=== PATIENT | male | born 1970 | race Caucasian/White ===

== ENCOUNTER 2020-06-26 06:07 | Day surgery (SDC) | payer MEDICAID, SELFPAY ==
[2020-06-19 14:14] LABS: BASOPHILS # (AUTO) 0.2 K/uL (0.00-0.22); EOSINOPHILS # (AUTO) 0.4 K/uL (0-0.4); EOSINOPHILS % (AUTO) 2.4 % (0.0-4.0); HEMATOCRIT 37.8 % (36-52); HEMOGLOBIN 12.4 g/dL (12.0-18.0); LYMPHOCYTES # (AUTO) 2.9 K/uL (2.0-11.5); LYMPHOCYTES % (AUTO) 19.2 % (20.5-51.1); MEAN CORPUSCULAR HEMOGLOBIN 26 pg (27-31); MEAN CORPUSCULAR HGB CONC 33 g/dL (33-37); MEAN CORPUSCULAR VOLUME 78.4 fL (80-94); MONOCYTES # (AUTO) 0.8 K/uL (0.8-1.0); NEUTROPHILS # (AUTO) 10.9 K/uL (1.8-7.7); NEUTROPHILS % (AUTO) 72.4 % (42.2-75.2); PLATELET COUNT (AUTO) 391 K/uL (140-450); RED BLOOD CELL COUNT(AUTO) 4.83 MIL/uL (4.20-6.10); RED CELL DISTRIBUTION WIDTH 18.7 % (11.6-13.7)
[2020-06-19 14:31] LABS: ALBUMIN 3.1 g/dL (3.4-5.0); ANION GAP 11.8 (8-16); CARBON DIOXIDE 25.2 mmol/L (21-32); CREATININE 0.8 mg/dL (0.6-1.3); TOTAL BILIRUBIN 0.1 mg/dL (0.0-1.0)
[~2020-06-26] VITALS: Ht 175.3 cm; Wt 64.9 kg
[2020-06-26] MEDS ORDERED: BUPIVACAINE-MPF/EPI 0.5% 30 ML VIAL INJ ONE (07:25)
[2020-06-26] MEDS ORDERED: BUPIVACAINE-MPF 0.25% 30 ML VIAL INJ ONE (07:29)
[2020-06-26] MEDS ORDERED: PROPOFOL 200 MG/20 ML VIAL IV ONE (07:40)
[2020-06-26] MEDS ORDERED: fentaNYL citrate 0.05 MG/ML VIAL ONE (07:40)
[2020-06-26] MEDS ORDERED: MIDAZOLAM 2 MG/2 ML VIAL ONE (07:40)
[2020-06-26] MEDS ORDERED: LIDOCAINE 2% 1000 MG/50 ML VIAL INJ ONE ×2 (08:00→08:01)
== END 2020-06-26 10:35 | disposition home or self-care (01) ==
LOC: MDS 06:07 → MMU 06:08 → MDS 10:35
PROVIDERS: ATTEND Urology
DX: R33.9 Retention of urine, unspecified (principal); N31.9 Neuromuscular dysfunction of bladder, unspecified; N36.8 Other specified disorders of urethra; I10 Essential (primary) hypertension; F32.9 Major depressive disorder, single episode, unspecified; Z79.899 Other long term (current) drug therapy; Z20.828 Contact with and (suspected) exposure to other viral communicable diseases
CPT/HCPCS: 36415; 51040; 71045; 80053; 85025; J0690; J2001; J2250; J2704; J3010; J7060; J7120; U0003; J3490

== ENCOUNTER 2020-10-07 09:33 | Emergency (ER) | payer MEDICAID, SELFPAY ==
[~2020-10-07] VITALS: Ht 170.2 cm; Wt 68.0 kg
--- NOTE | 2020-10-07 09:33 | NUR ---
Patient BIBA ALS, transferred to bed 1. RN evaluating the patient at bedside.
[2020-10-07 09:40] VITALS: BP 106/57
[2020-10-07] MEDS ORDERED: cefTRIAXone 1,000 MG in DEXT 5% MINI-BAG PLUS 50 ML IV ONE (09:45)
[2020-10-07] MEDS ORDERED: LEVOFLOXACIN 500 MG/D5W PREMIX 100 ML IV ONE (09:55)
[2020-10-07] MEDS ORDERED: DOCU-299 PO (10:01)
[2020-10-07] MEDS ORDERED: ASCO500T95 PO (10:01)
[2020-10-07] MEDS ORDERED: LORA10TA19 PO (10:01)
[2020-10-07] MEDS ORDERED: GABA400C PO (10:01)
[2020-10-07] MEDS ORDERED: FLOR250 PO (10:01)
[2020-10-07] MEDS ORDERED: ACET-2214 PO (10:01)
[2020-10-07] MEDS ORDERED: [UNRECOGNIZED DRUG - CODE] PO (10:12)
[2020-10-07] MEDS ORDERED: SENN-73 PO (10:12)
[2020-10-07] MEDS ORDERED: HYDR-5018 PO (10:12)
[2020-10-07] MEDS ORDERED: AMMO12LO TP (10:12)
[2020-10-07] MEDS ORDERED: PANT40EC PO (10:12)
[2020-10-07] MEDS ORDERED: CEPH500C16 PO (10:12)
[2020-10-07] MEDS ORDERED: ACET-9494 PO (10:12)
[2020-10-07] MEDS ORDERED: ONDA4TAB PO (10:12)
[2020-10-07] MEDS ORDERED: MIRT-92 PO (10:12)
[2020-10-07] MEDS ORDERED: MAGN400S60 PO (10:12)
[2020-10-07] MEDS ORDERED: ZOLP5TAB1 PO (10:12)
[2020-10-07] MEDS ORDERED: PRO5 PO (10:12)
[2020-10-07] MEDS ORDERED: METH-1681 PO (10:12)
[2020-10-07] MEDS ORDERED: ACET-2619 PO (10:12)
[2020-10-07] MEDS ORDERED: MULT-1328 PO (10:12)
[2020-10-07] MEDS ORDERED: NA P133E RC (10:13)
[2020-10-07 10:21] LABS: BASOPHILS # (AUTO) 0.1 K/uL (0.00-0.22); BASOPHILS % (AUTO) 0.7 % (0.0-2.0); EOSINOPHILS # (AUTO) 0.1 K/uL (0-0.4); EOSINOPHILS % (AUTO) 0.4 % (0.0-4.0); HEMATOCRIT 28.4 % (36-52); HEMOGLOBIN 9.2 g/dL (12.0-18.0); LYMPHOCYTES % (AUTO) 10.6 % (20.5-51.1); MEAN CORPUSCULAR HEMOGLOBIN 25 pg (27-31); MEAN CORPUSCULAR HGB CONC 32 g/dL (33-37); MEAN CORPUSCULAR VOLUME 76.8 fL (80-94); MONOCYTES # (AUTO) 1.1 K/uL (0.8-1.0); MONOCYTES % (AUTO) 6.1 % (1.7-9.3); NEUTROPHILS # (AUTO) 15.1 K/uL (1.8-7.7); NEUTROPHILS % (AUTO) 82.2 % (42.2-75.2); PLATELET COUNT (AUTO) 476 K/uL (140-450); RED BLOOD CELL COUNT(AUTO) 3.69 MIL/uL (4.20-6.10); WHITE BLOOD COUNT (AUTO) 18.4 K/uL (4.8-10.8)
[2020-10-07 10:25] LABS: BILIRUBIN,URINE NEGATIVE (NEGATIVE); COLOR,URINE YELLOW (YELLOW); LEUKOCYTE ESTERASE ,URINE NEGATIVE (NEGATIVE); NITRITE, URINE NEGATIVE (NEGATIVE); UGLUCOSE NEGATIVE (NEGATIVE)
--- NOTE | 2020-10-07 10:26 | NUR ---
50 Y/O M STAYS AT [facility], CAME IN FOR ELEVATED WBCS AND FEVER FOR PAST 4 DAYS. LAST PM, HAD 101.0 F AT 2230. PT COMPLAINS OF 8/10 NECK AND SACRAL PAIN. PT HAS TWO PRESSURE INJURIES ON BUTTOCKS AND SACRAL AREA. UPON ASSESSMENT, FOUND STAGE 1 ON L ANKLE. PMH OF CHRONIC PAIN, PARAPLEGIC, AND LOW BP. ALLERGIES TO ROCEPHRIN AND TRAZADONE. DENIES ANY CONTACT WITH ANYONE WHO IS COVID POSITIVE, DENIES SOB, COUGH, CHEST PAIN.
[2020-10-07 10:34] LABS: ALBUMIN 2.3 g/dL (3.4-5.0); ANION GAP 12.8 (8-16); CARBON DIOXIDE 26.8 mmol/L (21-32); CREATININE 0.7 mg/dL (0.6-1.3); POTASSIUM 3.6 mmol/L (3.5-5.1); TOTAL BILIRUBIN 0.2 mg/dL (0.0-1.0)
[2020-10-07] MEDS ORDERED: MORPHINE SULFATE 4 MG/ML SYR IVP ONE (10:55)
[2020-10-07 11:08] LABS: APPEARANCE,URINE CLEAR (CLEAR); BLOOD, URINE 1+ (NEGATIVE); RBC,URINE 0-5 /HPF (0-5); WBC,URINE 0-5 /HPF (0-5)
[2020-10-07] MEDS ORDERED: fentaNYL citrate 0.05 MG/ML VIAL IVP ONE (11:10)
--- NOTE | 2020-10-07 11:51 | NUR ---
UPON ASSESSMENT, NOTICED STAGE 1 PRESSURE INJURY ON L ANKLE. WOUND WAS CLEANED, DRESSED AND LABELED.
--- NOTE | 2020-10-07 12:21 | NUR ---
Patient discharged with v/s stable. Written and verbal after care instructions given and explained. Patient alert, oriented and verbalized understanding of instructions. Ambulance Transport with to long-term. All questions addressed prior to discharge. ID band removed. Patient advised to follow up with PMD. Rx of BACTRIM given. Patient educated on indication of medication including possible reaction and side effects. Opportunity to ask questions provided and answered.
[2020-10-07 14:26] VITALS: BP 110/69
== END 2020-10-07 12:21 | disposition home or self-care (01) ==
LOC: MED 09:33
DX: D72.829 Elevated white blood cell count, unspecified (principal); L98.499 Non-pressure chronic ulcer of skin of other sites with unspecified severity; F17.200 Nicotine dependence, unspecified, uncomplicated; Z88.1 Allergy status to other antibiotic agents; Z79.899 Other long term (current) drug therapy; Z98.890 Other specified postprocedural states
CPT/HCPCS: 36415; 71045; 80053; 81001; 83605; 83880; 84484; 85025; 87040; 87086; 93005; 96365; 96375; 99285; J1956; J3010; J2270

== ENCOUNTER 2020-10-12 15:36 | Inpatient (IN) | payer MEDICAID, SELFPAY ==
[~2020-10-12] VITALS: Ht 170.2 cm; Wt 67.6 kg
[~2020-10-12 15:36] MED LIST: ACET-2214 PO; ACET-2619 PO; AMMO12LO TP; ASCO500T95 PO; CEPH500C16 PO; DOCU-299 PO; FLOR250 PO; GABA400C PO; HYDR-5018 PO; LORA10TA19 PO; MAGN400S60 PO; METH-1681 PO; MIRT-92 PO; MULT-1328 PO; NA P133E RC; ONDA4TAB PO; OXYC-163 PO; PANT40EC PO; PRO5 PO; SENN-73 PO; ZOLP5TAB1 PO; [UNRECOGNIZED DRUG - CODE] PO
[2020-10-12 15:37] VITALS: BP 90/48
[2020-10-12] MEDS ORDERED: BISA-213 RC (15:43)
[2020-10-12] MEDS ORDERED: HYDR-5191 PO (15:43)
[2020-10-12] MEDS ORDERED: [UNRECOGNIZED DRUG - CODE] IM (15:44)
--- NOTE | 2020-10-12 15:45 | NUR ---
50 YO M DELTAA FROM [facility] FOR ABNORMAL LABS- ELEVATED WBC COUNT. PER REPORT THE FACILITY DOCTOR BELIEVES HE MAY HAVE A UTI OR WOUND INFECTION. PT DENIES COVID SYMTPOMS, WAS NEGATIVE FOR COVID LAST WEEK. PT ALSO JUST RECIEVED SECOND COVID VACCINE LAST WEEK. PT REPORTS 9/10 LEFT SIDED HIP PAIN AT WOUND SITE AND CHRONIC NECK PAIN. PT PLACED ON BRIM CURLER. BED LOCKED AND IN LOWEST POSITION. SIDE RAILS X2. MED HX: PARAPELEGIC, SUPRAPUBIC URINARY CATHETER, OSTEOMYELITIS, HYPOTENSION
[2020-10-12] MEDS ORDERED: GENTAMICIN 80 MG in DEXTROSE 5% 100 ML IV ONE (15:50)
[2020-10-12] MEDS ORDERED: VANCOMYCIN 1,000 MG in DEXTROSE 5% 250 ML IV ONE (15:50)
[2020-10-12] MEDS ORDERED: NACL 0.9% 1,000 ML IV SCH (15:50)
--- NOTE | 2020-10-12 16:00 | NUR ---
ERMD MADE AWARE OF PERSISTENT HYPOTENSION, ORDERS GIVEN
--- NOTE | 2020-10-12 16:10 | NUR ---
LABS DRAWN AND TAKEN TO LAB
[2020-10-12] MEDS ORDERED: GENTAMICIN 80 MG/2 ML VIAL ONE (16:21)
[2020-10-12] MEDS ORDERED: MORPHINE SULFATE 4 MG/ML SYR IVP ONE (16:25)
[2020-10-12] MEDS ORDERED: MIDODRINE 5 MG TAB PO ONE (16:25)
[2020-10-12 16:34] LABS: BASOPHILS # (AUTO) 0.2 K/uL (0.00-0.22); BASOPHILS % (AUTO) 1.3 % (0.0-2.0); EOSINOPHILS # (AUTO) 0.1 K/uL (0-0.4); EOSINOPHILS % (AUTO) 0.5 % (0.0-4.0); HEMATOCRIT 30.2 % (36-52); HEMOGLOBIN 9.5 g/dL (12.0-18.0); LYMPHOCYTES % (AUTO) 11.9 % (20.5-51.1); MEAN CORPUSCULAR HEMOGLOBIN 25 pg (27-31); MEAN CORPUSCULAR HGB CONC 32 g/dL (33-37); MEAN CORPUSCULAR VOLUME 77.6 fL (80-94); MONOCYTES % (AUTO) 6.4 % (1.7-9.3); NEUTROPHILS # (AUTO) 13.1 K/uL (1.8-7.7); NEUTROPHILS % (AUTO) 79.9 % (42.2-75.2); PLATELET COUNT (AUTO) 528 K/uL (140-450); RED BLOOD CELL COUNT(AUTO) 3.89 MIL/uL (4.20-6.10); RED CELL DISTRIBUTION WIDTH 15.7 % (11.6-13.7); WHITE BLOOD COUNT (AUTO) 16.4 K/uL (4.8-10.8)
--- NOTE | 2020-10-12 16:37 | NUR ---
PT REFUSED MORPHINE STATES "IT DOES NOTHING FOR ME." ERMD MADE AWARE. ORDERS GIVEN
[2020-10-12] MEDS ORDERED: fentaNYL citrate 0.05 MG/ML VIAL IVP ONE (16:50)
[2020-10-12 16:54] LABS: ALBUMIN 2.3 g/dL (3.4-5.0); ANION GAP 10.6 (8-16); CARBON DIOXIDE 29.4 mmol/L (21-32); CREATININE 0.7 mg/dL (0.6-1.3); TOTAL BILIRUBIN 0.2 mg/dL (0.0-1.0)
[2020-10-12 16:54] LABS: APPEARANCE,URINE CLEAR (CLEAR); BILIRUBIN,URINE NEGATIVE (NEGATIVE); BLOOD, URINE 1+ (NEGATIVE); COLOR,URINE YELLOW (YELLOW); LEUKOCYTE ESTERASE ,URINE NEGATIVE (NEGATIVE); NITRITE, URINE NEGATIVE (NEGATIVE); UGLUCOSE NEGATIVE (NEGATIVE)
[2020-10-12 17:00] LABS: RBC,URINE 11-20 (MOD) /HPF (0-5); WBC,URINE 0-5 /HPF (0-5)
[2020-10-12 17:01] LABS: CALCIUM OXALATE CRYSTALS,UR 0-10 /HPF (None Seen)
--- NOTE | 2020-10-12 17:09 | NUR ---
PT PROVIDED WITH SANDWICH JUICE AND CRACKERS AFTER ERMD APPROVAL
[2020-10-12] MEDS ORDERED: VANCOMYCIN 1,000 MG VIAL ONE (17:19)
[2020-10-12] MEDS ORDERED: NACL 0.9% 2,000 ML IV ONE (17:20)
[2020-10-12] MEDS: NACL 0.9% 1,000 ML IV SCH (17:20)
--- NOTE | 2020-10-12 17:34 | NUR ---
IRAIDA SWAB COLLECTED AND TAKEN TO LAB
--- NOTE | 2020-10-12 18:00 | NUR ---
WOUND CULTURES OBTAINED FROM LEFT BUTTOCK WOUND AND WALKED TO LAB
--- NOTE | 2020-10-12 19:11 | NUR ---
REPORT GIVEN TO TERI HOPE. TRANSFER OF CARE AT THIS TIME.
--- NOTE | 2020-10-12 19:15 | NUR ---
RECEIVED REPORT FROM DAY NURSE; PT AAOX3, FOLLOWING COMMANDS. DENIES PAIN FEVER CHILLS @ THIS TIME. NO CP OR SOB. CRISTELA LOCKED IN LOWEST POSITION. IV TO R AC 20 G WITH VANCOMYCIN ABX RUNNING. WILL CONTINUE TO OBSERVE.
--- NOTE | 2020-10-12 19:40 | NUR ---
RECEIVED REPORT FROM ER NURSE, HERMINIA WILLIAMSON. WILL WAIT FOR PT TO ARRIVE ON THE UNIT.
[2020-10-12 20:00] VITALS: BP 107/55
--- NOTE | 2020-10-12 20:00 | NUR ---
RECEIVED PT FROM DRU RN. PT IS AWAKE AND ALERT, SPEAKING APPROPRIATELY. ON RA WITH BREATHING UNLABORED. SUPRAPUBIC CATHETER IN PLACE WITH 400 ML OF CLEAR, YELLOW URINE. WOUNDS ON THE LEFT BUTTOCKS, RIGHT BUTTOCK, SACRAL, AND LEFT FOOT. ALL WOUNDS ARE DRESSED AND INTACT. IV IS IN THE RIGHT AC 20 GAUGE RUNNING NS AT 100 ML PER HOUR PER ORDER. NO DISTRESS NOTED. STANDARD AND FALL PRECAUTIONS IN PLACE. PT IS STABLE. PLAN OF CARE DISCUSSED.
[2020-10-12] MEDS ORDERED: HYDROcodone/APAP 7.5/325 MG 1 TAB PO PRN (20:15)
[2020-10-12] MEDS ORDERED: ACETAMINOPHEN 325 MG TAB PO PRN (20:15)
[2020-10-12] MEDS ORDERED: ONDANSETRON 4 MG/2 ML VIAL IM/IVP PRN (20:15)
[2020-10-12] MEDS ORDERED: guaiFENesin DM 200/20 MG-10 ML 10 ML UDC PO PRN (20:15)
[2020-10-12] MEDS ORDERED: POTASSIUM CHLORIDE 40 MEQ, LIDOCAINE MPF 1% 25 MG in NACL 0.9% 250 ML IV PRN (20:15)
[2020-10-12] MEDS ORDERED: ZOLPIDEM 5 MG TAB PO PRN (20:15)
[2020-10-12] MEDS ORDERED: DOCUSATE SODIUM 100 MG GELCAP PO PRN (20:15)
--- NOTE | 2020-10-12 20:33 | NUR ---
PT WAS GIVEN NORCO 7.5 MG ORDERED FOR PAIN. PT STATES HIS PAIN IS AT A 10/10 IN HIS SACRAL REGION. PT STATES IT AN ACHING PAIN. HE IS VERY AGITATED, RESTLESS, AND HAS A FACIAL GRIMACE. BP WAS 107/55 PRIOR TO ADMINISTRATION. WILL CONTINUE TO MONITOR PAIN.
[2020-10-12 20:54] LABS: PROTHROMBIN TIME 10.8 secs (10.8-13.4)
[2020-10-12 21:02] LABS: CHOL/HDL RATIO 5.5 (1-4.5); FREE T4 (FREE THYROXINE) 1.01 ng/dL (0.76-1.46); MAGNESIUM 2.1 mg/dL (1.8-2.4); PHOSPHORUS 3.3 mg/dL (2.5-4.9); THYROID STIMULATING HORMONE 0.84 uIU/mL (0.34-3.74)
--- NOTE | 2020-10-12 21:12 | NUR ---
Patient will be admitted to care of DR. PEÑALOZA. Admited to TELEMETRY 126A. Belongings list completed. Report to LUKE WILLIAMSON. Addendum: 10/12/20 at 2117 by SEMAJ PT MOVED TO MST @ 194
[2020-10-12] MEDS ORDERED: CLINDAMYCIN 600 MG/4 ML VIAL ONE (21:39)
--- NOTE | 2020-10-12 21:45 | NUR ---
NOTIFIED DR. PEÑALOZA THAT THE PT WAS GIVEN NORCO 7.5 MG AN HOUR AGO AND IT DID NOT RELIEVE THE PAIN IN THE SACRAL REGION. PAIN IS STILL 10/10. PT IS FACIAL GRIMACING, RESTLESS, AND AGITATED. ALSO INFORMED HIM THAT THE PT STATED HE NORMALLY GETS NORCO 10 MG Q6H AND OXYCODONE Q6H FOR PAIN. DOCTOR ORDERED NORCO 10 MG Q 4H AND OXYCODONE 5 MG Q 6H FOR PAIN. WILL ADMINISTER ONCE VERIFIED.
[2020-10-12] MEDS: LEVOFLOXACIN 750 MG/D5W PREMIX 150 ML IV SCH (22:06)
[2020-10-12] MEDS: CLINDAMYCIN 600 MG in DEXTROSE 5% 50 ML IV SCH (22:19)
[2020-10-12] MEDS: oxyCODONE 5 MG TAB PO PRN (22:20)
--- NOTE | 2020-10-12 22:20 | NUR ---
PT STATES HIS PAIN IS AT A SCALE OF 10/10 IN THE SACRAL REGION. PT STATES IT AN ACHING PAIN. HE WAS GIVEN OXYCODONE 5 MG ORDERED BY THE DOCTOR CRACKER SPRAYER. BP WAS 105/60 PRIOR TO ADMINISTRATION. WILL MONITOR PAIN.
--- NOTE | 2020-10-12 23:00 | NUR ---
PT WAS GIVEN FOOD REQUESTED AND JUICE. PT ATE THE ENTIRE SNACK AND DRANK WATER. PT IS GOING BACK TO BED.
[2020-10-13] VITALS: BP 101/61
--- NOTE | 2020-10-13 | NUR ---
ROUNDED ON PT. HE IS ASLEEP. NO DISTRESS NOTED. PT IS ON RA WITH BREATHING UNLABORED. PILLOWS IN PLACE TO OFFSET PRESSURE OFF BUTTOCKS. WOUND BED IN PLACE AND INFLATED. IV IS PATENT AND INFUSING FLUIDS ORDERED. WILL CONTINUE TO MONITOR.
--- NOTE | 2020-10-13 01:30 | NUR ---
PICTURE WAS TAKEN OF WOUND ON THE RIGHT BUTTOCK. OTHER PICTURES OF WOUNDS WERE ALREADY TAKEN BUT THIS ONE DID NOT HAVE A PICTURE YET. ALL WOUNDS WERE CLEANSED WITH NS AND PATTED DRY. DRESSINGS WERE PLACED. DIAPER IS INTACT AND DRY. NO DISTRESS NOTED. PT WAS REPOSITIONED.
[2020-10-13] MEDS: NACL 0.9% 1,000 ML IV SCH ×2 (03:20→13:20)
--- NOTE | 2020-10-13 03:30 | NUR ---
ROUNDED ON PT. HE IS SLEEPING IN SEMI FOWLERS POSITION. IV IS PATENT AND INFUSING. NO PAIN OR DISTRESS NOTED. BED IS IN THE LOWEST POSITION AND CALL LIGHT IS WITHIN REACH. WILL MONITOR.
[2020-10-13 04:00] VITALS: BP 112/64
[2020-10-13] MEDS ORDERED: CLINDAMYCIN 600 MG/4 ML VIAL ONE (04:55)
[2020-10-13] MEDS: CLINDAMYCIN 600 MG in DEXTROSE 5% 50 ML IV SCH ×3 (05:13→20:19)
[2020-10-13] MEDS: HYDROcodone/APAP 10/325 MG 1 TAB TAB PO PRN ×3 (05:22→20:16)
--- NOTE | 2020-10-13 05:22 | NUR ---
PT WAS REPOSITIONED AND STATED HE HAD PAIN IN THE SACRAL REGION. PT SAYS THE PAIN IS AT A SCALE OF 6/10. PT WAS GIVEN NORCO ORDERED FOR PAIN. BP WAS 112/64 PRIOR TO ADMINISTRATION. WILL CONTINUE TO MONITOR PAIN.
[2020-10-13 06:28] LABS: ANION GAP 13.6 (8-16); CARBON DIOXIDE 23.8 mmol/L (21-32); CREATININE 0.6 mg/dL (0.6-1.3); POTASSIUM 4.4 mmol/L (3.5-5.1)
--- NOTE | 2020-10-13 06:55 | NUR ---
PATIENT HAS BEEN SCREENED AND CATEGORIZED HIGH NUTRITION RISK. PATIENT WILL BE SEEN WITHIN 1-2 DAYS OF ADMISSION. 10/13/20-10/14/20 KEVON WALLER MS, RDN
--- NOTE | 2020-10-13 07:15 | NUR ---
ENDORSED PT TO DAY SHIFT NURSE FOR CONTINUITY OF CARE. PLAN OF CARE DISCUSSED. PT IS STABLE.
--- NOTE | 2020-10-13 07:17 | NUR ---
RECEIVED REPORT FROM NIGHT NURSE PT IS AAOX4, ON ROOM AIR , WITH SUPRAPUBIC CATHETER, ON MECHANICAL SOFT DIET, COVID 19 VACCINE RECEIVED BY THE PATIENT, IV INTACT ON RIGHT AC G20 SKIN NON INTACT ON THE RIGHT BUTTOCKS AND 2 LEFT BUTTOCKS, 1 SACRAL WOUND DEBRIDEMENT DONE, 1 OUTER AND INNER LEFT FOOT WOUND. SAFETY MEASURES IN PLACE AND CALL LIGHT WITHIN REACH WILL CONTINUE TO MONITOR.
--- NOTE | 2020-10-13 07:25 | NUR ---
RECEIVED CONTINUATION PLAN OF CARE FROM DATA REVIEW SPECIALIST NURSE. PATIENT IS IN BED AWAKE, ALERT, AOX4. PATIENT IS ON ROOM AIR O2 96%. IV SITE IN PLACE AND INTACT. NO SWELLING OR REDNESS NOTED. NOT COOL TO TOUCH. PATIENT HAS WOUNDS ON RIGHT BUTTOCKS, 2 ON LEFT BUTTOCKS, 1 IN THE SACRAL, 1 IN BOTH OUTSIDE AND INSIDE OF THE LEFT FOOT. LAST PRN PAIN MEDICATIONS NORCO AT 0520AM AND OXY ON 2020PM. SAFETY MEASURES ARE IN PLACE. CALL LIGHT WITHIN REACH. WILL CONTINUE TO MONITOR NEEDED.
[2020-10-13 08:00] VITALS: BP 101/59
[2020-10-13] MEDS: oxyCODONE 5 MG TAB PO PRN ×2 (08:13→18:44)
[2020-10-13] MEDS: PANTOPRAZOLE 40 MG TABEC PO SCH (08:13)
--- NOTE | 2020-10-13 09:09 | NUR ---
SCHEDULED MEDICATIONS DUE GIVEN. PATIENT IN BED. NO DISTRESS NOTED. WILL CONTINUE TO MONITOR NEEDED.
[2020-10-13 09:20] LABS: BASOPHILS # (AUTO) 0.1 K/uL (0.00-0.22); BASOPHILS % (AUTO) 0.6 % (0.0-2.0); EOSINOPHILS # (AUTO) 0.1 K/uL (0-0.4); HEMATOCRIT 29.1 % (36-52); HEMOGLOBIN 9.1 g/dL (12.0-18.0); LYMPHOCYTES # (AUTO) 2.2 K/uL (2.0-11.5); LYMPHOCYTES % (AUTO) 17.3 % (20.5-51.1); MEAN CORPUSCULAR HEMOGLOBIN 25 pg (27-31); MEAN CORPUSCULAR HGB CONC 31 g/dL (33-37); MEAN CORPUSCULAR VOLUME 77.9 fL (80-94); MONOCYTES # (AUTO) 0.8 K/uL (0.8-1.0); MONOCYTES % (AUTO) 6.1 % (1.7-9.3); NEUTROPHILS # (AUTO) 9.7 K/uL (1.8-7.7); PLATELET COUNT (AUTO) 458 K/uL (140-450); RED BLOOD CELL COUNT(AUTO) 3.74 MIL/uL (4.20-6.10); RED CELL DISTRIBUTION WIDTH 16.3 % (11.6-13.7); WHITE BLOOD COUNT (AUTO) 12.9 K/uL (4.8-10.8)
[2020-10-13 12:00] VITALS: BP 103/50
--- NOTE | 2020-10-13 13:20 | NUR ---
MEDICATION DUE GIVEN AND PT COMPLAINS OF PAIN 8/10 PAIN MEDICATION GIVEN.
--- NOTE | 2020-10-13 14:00 | NUR ---
PATIENT GAVE CONSENT FOR DEBRIDEMENT MULTIPLE DECUBITI WOUNDS, INCLUDING SACROCOCYX, LEFT BUTTOCK/ ISCHIA PROCEDURE SCHEDULED FOR TOMORROW UNDER DR AMADOR.
[2020-10-13 16:00] VITALS: BP 101/52
--- NOTE | 2020-10-13 16:40 | NUR ---
CLEANED AND CHANGED PATIENTS WOUND DRESSINGS. NO DISTRESS NOTED. NO CHANGE IN FINDINGS FOR PATIENTS PRESSURE ULCERS. WILL CONTINUE TO MONITOR NEEDED.
--- NOTE | 2020-10-13 19:09 | NUR ---
ENDORSED CONTINUATION PLAN OF CARE TO JACQUARD FIXER NURSE. PATIENT IS IN STABLE CONDITION.
--- NOTE | 2020-10-13 19:30 | NUR ---
RECEIVED REPORT FROM DAKOTAH WILLIAMSON DAYSHIFT NURSE AT BEDSIDE FOR CONTINUITY OF CARE, PT IN STABLE CONDITION.
[2020-10-13 20:00] VITALS: BP 103/53
--- NOTE | 2020-10-13 20:00 | NUR ---
PT IN BED AOX4, HE HAS A SUPRAPUBIC CATHETER DRAINING YELLOW URINE. PT ALSO HAS RAC 20G RUNNING NORMAL SALINE AT 100MLS/HR. IV SITE INTACT AND ASYMPTOMATIC. V/S FOLLOWS: T 98.7 P 72 R 19 B/P 103/53 02 97% ON ROOM AIR. ALL FALLS PRECAUTIONS IN PLACE.
--- NOTE | 2020-10-13 20:18 | NUR ---
PT GIVEN 1 TAB NORCO REQUESTED FOR 5/10 PAIN AT WOUND SITES.
--- NOTE | 2020-10-13 21:00 | NUR ---
CLEOCIN WAS HUNG AND RUNNING ORDERED AT 100MLS/HR. EDUCATION REGARDING MEDICATION AND ITS PURPOSES PROVIDED AT BEDSIDE, PT VERBALIZED UNDERSTANDING.
[2020-10-13] MEDS: LEVOFLOXACIN 750 MG/D5W PREMIX 150 ML IV SCH (21:10)
--- NOTE | 2020-10-13 21:30 | NUR ---
LEVAQUIN WAS HUNG AND RUNNING ORDERED. MEDICATION AND ITS PURPOSES PROVIDED AT BEDSIDE. PT SAID THAT HE DOESN'T WANT TO TURN AT THIS TIME AND HIS DRESSINGS WERE ALREADY DONE, PT REMINDED OF NPO AFTER MIDNIGHT STATUS AND HE VERBALIZED UNDERSTANDING. PT SAID HE WOULD RATHER NOT BE DISTURBED AND WANTS TO SLEEP AT THIS TIME. ALL FALLS PRECAUTIONS IN PLACE.
[2020-10-14] VITALS: BP 101/58
--- NOTE | 2020-10-14 | NUR ---
PT IN BED RESTING, NO C/O VOICED PT DECLINED TO BE TURNED AND STATED THAT HE DID NOT NEED TO BE CHANGED. V/S FOLLOWS: T 98.1 P 70 R 22 B/P 101/58 02 97% ON ROOM AIR
[2020-10-14 04:00] VITALS: BP 99/54
--- NOTE | 2020-10-14 04:30 | NUR ---
NEW IV BAG OF NORMAL SALINE HUNG, IV CLEOCIN HUNG AND RUNNING ORDERED. ESTATE PLANNING PARALEGAL AT BEDSIDE DRAWING LABS. PT DENIES ANY PAIN, NO C/O VOICED AT THIS TIME.
[2020-10-14] MEDS: NACL 0.9% 1,000 ML IV SCH ×3 (04:35→19:20)
[2020-10-14] MEDS: CLINDAMYCIN 600 MG in DEXTROSE 5% 50 ML IV SCH ×2 (04:36→12:42)
--- NOTE | 2020-10-14 07:30 | NUR ---
RECEIVED REPORT FROM FLAME ANNEALING MACHINE SETTER RN FOR CONTINUITY OF CARE. PATIENT AWAKE, RESTING IN BED IN SUPINE POSITION. AAOX4, ON ROOM AIR. IV TO RIGHTA C 20G INFUSING IVF NS @ 100ML/HR. SUPRAPUBIC CATHETER IN PLACE. MULTIPLE WOUND NOTED, PENDING DEBRIDEMENT BY DR. AMADOR. NPO STATUS. SAFETY MEASURES IN PLACE, WILL CONTINUE TO MONITOR.
[2020-10-14 08:06] LABS: T4 (THYROXINE) 4.9 ug/dL (4.5-12.0)
[2020-10-14 08:27] LABS: BASOPHILS % (AUTO) 0.4 % (0.0-2.0); EOSINOPHILS # (AUTO) 0.1 K/uL (0-0.4); EOSINOPHILS % (AUTO) 0.7 % (0.0-4.0); HEMATOCRIT 27.7 % (36-52); HEMOGLOBIN 8.9 g/dL (12.0-18.0); LYMPHOCYTES # (AUTO) 1.7 K/uL (2.0-11.5); LYMPHOCYTES % (AUTO) 13.1 % (20.5-51.1); MEAN CORPUSCULAR HEMOGLOBIN 25 pg (27-31); MEAN CORPUSCULAR HGB CONC 32 g/dL (33-37); MEAN CORPUSCULAR VOLUME 76.3 fL (80-94); MONOCYTES # (AUTO) 0.6 K/uL (0.8-1.0); NEUTROPHILS # (AUTO) 10.5 K/uL (1.8-7.7); NEUTROPHILS % (AUTO) 80.8 % (42.2-75.2); PLATELET COUNT (AUTO) 502 K/uL (140-450); RED BLOOD CELL COUNT(AUTO) 3.63 MIL/uL (4.20-6.10); RED CELL DISTRIBUTION WIDTH 15.6 % (11.6-13.7)
[2020-10-14 08:41] LABS: ANION GAP 11.8 (8-16); CARBON DIOXIDE 26.9 mmol/L (21-32); CREATININE 0.6 mg/dL (0.6-1.3); POTASSIUM 3.7 mmol/L (3.5-5.1)
[2020-10-14] MEDS: PANTOPRAZOLE 40 MG TABEC PO SCH (09:00)
[2020-10-14] MEDS ORDERED: MORPHINE SULFATE 2 MG/ML SYR IVP PRN (09:20)
--- NOTE | 2020-10-14 09:22 | NUR ---
SOCIAL WORK NOTE: Patient's Orientation Unable To Assess Information Provided By KYLEIGH - NURSE Comments SW WAS UNABLE TO MEET PATIENT AT BEDSIDE. SW COMPLETED ASSESSMENT WITH STAFF FROM SNF. PER KYLEIGH, PATIENT IS SELF-RESPONSIBLE WITH MEDICAL DECISIONS. Direct Support Worker, Realtionship and Phone Number STAN SCHERER [phone] Healthcare Power of Cigar Tobacco Rehandler No Does Patient Have a POLST No Identifying Problems No Social Work Triggers Is A Social Work Consult Needed No Mandate Report Filed No Explanation Of Identifying Problems PATIENT IS A 50-YEAR-OLD MALE ADMITTED FOR WOUND INFECTION AND DEHYDRATION. PATIENT HAS PMHX OF SLEEP DISORDER, PARAPLEGIA, MUSCLE SPASM, AND DEPRESSION. Admitted From [facility] [phone] Pre-Admission Level Of Functioning Status Total Care Level Of Functioning Comment PER KYLEIGH, PATIENT REQUIRES TOTAL ASSISTANCE WITH ADLS. Prior Resources/Services Used In Last 12 Months SNF [facility] Prior Resources/Service Comments PER KYLEIGH, PATIENT IS LONGTERM AND ON A BED HOLD. Prior [facility] Hospital Bed Wheelchair Dialysis Comments N/A Patient Had Caregiver No Home Support No Caregiver Issues Financial Issues No Known Financial Issue Referral To The Financial Counselor Needed No Factors/Needs No D/C Needs Identified Pt/Rep Participated In Discharge Plan Yes Patient/Family Agress With Discharge Plan Yes Discharge Plan Comments TENTATIVE DISCHARGE PLAN IS FOR PATIENT TO RETURN TO [facility]. IA Plan Status Initiated
--- NOTE | 2020-10-14 11:30 | NUR ---
DISCHARGE PLANNING: THIS IS A 50 Y/O MALE PATIENT FROM [facility], WHO CAME IN DUE TO BUTTOCK WOUND INFECTION. PAST MEDICAL HISTORY INCLUDE SLEEP DISORDER, PARAPLEGIA, MUSCLE SPASM, DEPRESSION, CHRONIC PAIN, NEUROPATHY AND CONSTIPATION. INITIAL DIAGNOSIS OF WOUND INFECTION. CURRENT LABS INCLUDE WBC 13.0, H/H 8.9/27.7, NA/K 139/3.7, BUN/CREA 4/0.6. RAPID COVID TEST NEGATIVE. WOUND CS LEFT BUTTOCK SHOWED POSITIVE FOR E COLI. ON CLINDAMYCIN, LEVAQUIN. SURGICAL CONSULT IN PLACE. DC PLAN BACK TO [facility] ONCE STABLE. Addendum: 10/17/20 at 1154 by Marielos Ho CM DC FORESTRY FOREMAN: FAXED ORDER FOR DC TO [facility] WILL FOLLOW UP Addendum: 10/17/20 at 1351 by Marielos Ho CM DC FORESTRY FOREMAN: COLLETTE STOCKTON AT [facility] PATIENT CAN GO TO ROOM 105-B. WE CAN SET UP TRANSPORTATION WITH NATHALY ANDERSEN AND [facility]. Addendum: 10/17/20 at 1406 by Marielos Ho CM DC FORESTRY FOREMAN: GO GO TRANSPORTATION WILL BE HERE AT 5:30PM TO NURSE STAFF [facility] PATIENT. NOTIFIED CHARGE NURSE
--- NOTE | 2020-10-14 11:35 | NUR ---
POC DISCUSSED WITH PRIMARY RN, PT. PENDING SURGICAL DEBRIDEMENT TODAY. WOUND CARE EVAL. PENDING WOUND CARES ORDERS OBTAINED AND WILL VISIT PT. AFTER DEBRIDEMENT.
[2020-10-14 12:00] VITALS: BP 101/49
[2020-10-14] MEDS: HYDROcodone/APAP 10/325 MG 1 TAB TAB PO PRN ×2 (12:59→18:51)
--- NOTE | 2020-10-14 12:59 | NUR ---
NORCO GIVEN FOR NECK, SACRAL AREA PAIN 6/10. PATIENT IS NPO STATUS, BUT ONLY GIVEN NORCO WITH SIP OF WATER. EDUCATION PROVIDED. WILL CONTINUE TO MONITOR.
[2020-10-14] MEDS: PIPERACILLIN/TAZOBACTAM 2.25 GM in DEXTROSE 5% 50 ML IV SCH ×2 (14:23→21:08)
--- NOTE | 2020-10-14 14:44 | NUR ---
10/14/20 RD INITIAL ASSESSMENT COMPLETED PLEASE REFER TO NUTRITION ASSESSMENT UNDER CARE ACTIVITY FOR ESTIMATED NUTRITIONAL NEEDS. 1. WHEN MEDICALLY CLEARED CONTINUE MECHANICAL SOFT DIET TOLERATED 2. RECOMMEND MILAGROS BID AND ENSURE BID 3. RD TO FOLLOW-UP 3-5 DAYS, MODERATE RISK GERRI VALVERDE, RD
[2020-10-14 16:00] VITALS: BP 102/51
--- NOTE | 2020-10-14 16:22 | NUR ---
PATIENT REFUSED PILL MAKER TO TURN AND CHANGE HIM. REFUSED WOUND CARE.
--- NOTE | 2020-10-14 18:51 | NUR ---
NORCO GIVEN FOR NECK AND SACRAL AREA PAIN 02/06. PULLED PATIENT UP WITH ASSISTANCE OF THE GUN STOCKER. PATIENT HAS NOT HAVE BM SINCE 10/10. PER PATIENT, HE USUALLY GET SUPPOSITORY AND THAT HELPS HIM TO HAVE BM, WILL INFORM MD.
[2020-10-14] MEDS ORDERED: bisacodyL 10 MG SUPP RC PRN (19:15)
--- NOTE | 2020-10-14 19:20 | NUR ---
ENDORSED PATIENT TO SALON/SPA MANAGER RN FOR CONTINUITY OF CARE. PATIENT IS GOING TO HAVE DEBRIDEMENT UNDER DR. LEDBETTER TOMORROW MORNING.
--- NOTE | 2020-10-14 19:20 | NUR ---
RECEIVED PATIENT FROM AM SHIFT FOR CONTINUITY OF CARE. AAOX4. RESPIRATIONS EVEN, UNLABORED. NO S/S RESPIRATORY DISTRESS. SKIN WARM, DRY. IV SITE TO RIGHT AC 20G PATENT/INTACT, INFUSING FLUIDS WELL. NO C/O PAIN. NO S/S ACUTE DISTRESS. ABDOMEN SOFT, NONTENDER, NONDISTENDED. BOWEL SOUNDS ACTIVE X4 QUADRANTS. SUPRAPUBIC CATHETER PATENT WITH YELLOW URINE DRAINING TO GRAVITY. PLAN OF CARE DISCUSSED. SAFETY PRECAUTIONS IN PLACE. CALL LIGHT ALWAYS WITHIN REACH.
[2020-10-14 20:00] VITALS: BP 92/49
[2020-10-14] MEDS ORDERED: bisacodyL 10 MG SUPP RC ONE (20:38)
--- NOTE | 2020-10-14 21:30 | NUR ---
DUE MEDS GIVEN. NO S/S ACUTE DISTRESS. CALL LIGHT WITHIN REACH. SAFETY PRECAUTIONS IN PLACE.
[2020-10-14] MEDS ORDERED: VANCOMYCIN PER PHARMACY MC PRN (21:45)
[2020-10-14] MEDS ORDERED: VANCOMYCIN 1GM/DEXT 5% PREMIX 200 ML IV SCH (21:55)
[2020-10-14] MEDS ORDERED: VANCOMYCIN 1,000 MG VIAL ONE (22:11)
--- NOTE | 2020-10-14 23:00 | NUR ---
INCONTINENT CARE RENDERED WITH HVAC DESIGNER AT BEDSIDE. ALL DRESSING CHANGED DUE TO SOILAGE. PATIENT HAS BEEN REFUSING TO BE TURNED. RISKS AND BENEFITS EXPLAINED. CALL LIGHT WITHIN REACH. SAFETY PRECAUTIONS IN PLACE.
--- NOTE | 2020-10-15 01:00 | NUR ---
PATIENT REFUSED ALL VITALS. RISKS AND BENEFITS EXPLAINED. PATIENT CONTINUES TO REFUSE.
--- NOTE | 2020-10-15 03:16 | NUR ---
MADE ROUNDS. PATIENT IS ASLEEP. NO S/S ACUTE DISTRESS. CALL LIGHT WITHIN REACH. SAFETY PRECAUTIONS IN PLACE.
[2020-10-15] MEDS: PIPERACILLIN/TAZOBACTAM 2.25 GM in DEXTROSE 5% 50 ML IV SCH ×3 (05:07→20:29)
--- NOTE | 2020-10-15 05:10 | NUR ---
PATIENT REFUSES TO TURN AND REPOSITION. RISKS AND BENEFITS EXPLAINED REGARDING MAINTAINING SKIN INTEGRITY, PATIENT CONTINUES TO BE NONCOMPLIANT. WILL CONTINUE TO PROVIDE EDUCATION. PATIENT IN NO DISTRESS AT THIS TIME. CALL LIGHT WITHIN REACH. SAFETY PRECAUTIONS IN PLACE.
[2020-10-15] MEDS: NACL 0.9% 1,000 ML IV SCH ×2 (05:17→15:46)
--- NOTE | 2020-10-15 07:33 | NUR ---
ENDORSED PATIENT TO AM SHIFT NURSE FOR CONTINUITY OF CARE.
[2020-10-15 08:00] VITALS: BP 105/58
[2020-10-15] MEDS: PANTOPRAZOLE 40 MG TABEC PO SCH (08:22)
[2020-10-15] MEDS: VANCOMYCIN 1,000 MG in DEXTROSE 5% 250 ML IV SCH ×3 (08:22→23:15)
--- NOTE | 2020-10-15 08:24 | NUR ---
SCHEDULED MEDICATIONS GIVEN, EDUCATION PROVIDED. PATIENT DENIES PAIN AT THIS TIME. ASSISTED PATIENT TO ADJUST THE BED AND ELEVATED THE HOB. WAITING FOR DEBRIDEMENT. SAFETY MEASURES IN PLACE, WILL CONTINUE TO MONITOR.
[2020-10-15 09:46] LABS: BASOPHILS # (AUTO) 0.1 K/uL (0.00-0.22); BASOPHILS % (AUTO) 0.6 % (0.0-2.0); EOSINOPHILS # (AUTO) 0.1 K/uL (0-0.4); EOSINOPHILS % (AUTO) 1.2 % (0.0-4.0); HEMATOCRIT 28.2 % (36-52); LYMPHOCYTES # (AUTO) 1.9 K/uL (2.0-11.5); LYMPHOCYTES % (AUTO) 15.7 % (20.5-51.1); MEAN CORPUSCULAR HEMOGLOBIN 24 pg (27-31); MEAN CORPUSCULAR HGB CONC 32 g/dL (33-37); MEAN CORPUSCULAR VOLUME 75.7 fL (80-94); MONOCYTES # (AUTO) 0.5 K/uL (0.8-1.0); MONOCYTES % (AUTO) 4.5 % (1.7-9.3); NEUTROPHILS # (AUTO) 9.5 K/uL (1.8-7.7); PLATELET COUNT (AUTO) 591 K/uL (140-450); RED BLOOD CELL COUNT(AUTO) 3.72 MIL/uL (4.20-6.10); RED CELL DISTRIBUTION WIDTH 16.3 % (11.6-13.7); WHITE BLOOD COUNT (AUTO) 12.1 K/uL (4.8-10.8)
--- NOTE | 2020-10-15 09:49 | NUR ---
PATIENT BEEN PICKED UP BY THE OR NURSES TO HAVE PROCEDURE DEBRIDEMENT OF MULTIPLE WOUNDS BY DR. LEDBETTER. WILL FOLLOW UP.
[2020-10-15 10:22] LABS: CARBON DIOXIDE 27.8 mmol/L (21-32); CREATININE 0.6 mg/dL (0.6-1.3); POTASSIUM 3.8 mmol/L (3.5-5.1)
[2020-10-15 10:27] LABS: MAGNESIUM 2.1 mg/dL (1.8-2.4); PHOSPHORUS 3.5 mg/dL (2.5-4.9)
[2020-10-15] MEDS ORDERED: LIDOCAINE 2% 100 MG/5 ML SYR IVP ONE (10:36)
[2020-10-15] MEDS ORDERED: ROCURONIUM 50 MG/5 ML VIAL IV ONE (10:36)
[2020-10-15] MEDS ORDERED: BUPIVACAINE MPF 0.25% 10 ML VIAL INJ ONE (10:36)
[2020-10-15] MEDS ORDERED: PROPOFOL 200 MG/20 ML VIAL IV ONE (10:36)
[2020-10-15] MEDS ORDERED: ETOMIDATE 20 MG/10 ML VIAL IVP ONE (10:36)
[2020-10-15] MEDS ORDERED: fentaNYL citrate 0.05 MG/ML VIAL ONE (10:36)
[2020-10-15] MEDS ORDERED: KETOROLAC 30 MG/ML VIAL ONE (10:36)
[2020-10-15] MEDS ORDERED: SEVOFLURANE 250 ML BTL INH ONE (10:36)
[2020-10-15] MEDS ORDERED: ONDANSETRON 4 MG/2 ML VIAL ONE (10:36)
[2020-10-15] MEDS ORDERED: GLYCOPYRROLATE 0.2 MG/ML VIAL ONE (10:36)
[2020-10-15] MEDS ORDERED: DEXAMETHASONE 4 MG/ML VIAL ONE (10:36)
[2020-10-15] MEDS ORDERED: ePHEDrine 50 MG/ML VIAL ONE (10:36)
[2020-10-15] MEDS ORDERED: NEOSTIGMINE 1:1000 10 MG/10 ML VIAL ONE (10:36)
[2020-10-15] MEDS ORDERED: MEPERIDINE 25 MG/ML SYR IVP PRN (11:05)
[2020-10-15] MEDS ORDERED: diphenhydrAMINE 50 MG/ML VIAL IVP PRN (11:05)
[2020-10-15] MEDS ORDERED: ONDANSETRON 4 MG/2 ML VIAL IVP PRN (11:05)
[2020-10-15] MEDS: fentaNYL citrate 0.05 MG/ML VIAL IVP PRN ×3 (11:51→12:13)
[2020-10-15 12:40] VITALS: BP 114/59
--- NOTE | 2020-10-15 12:40 | NUR ---
PATIENT BACK FROM THE OR S/P DEBRIDEMENT. AWAKE, VITAL SIGNS TAKEN. IN STABLE CONDITION. WILL CONTINUE TO MONITOR.
[2020-10-15] MEDS: HYDROcodone/APAP 10/325 MG 1 TAB TAB PO PRN (12:50)
[2020-10-15] MEDS: LACTATED RINGERS 1,000 ML IV SCH ×2 (12:51→19:25)
[2020-10-15] MEDS: MORPHINE SULFATE 2 MG/ML SYR IVP PRN (15:46)
--- NOTE | 2020-10-15 15:46 | NUR ---
MORPHINE GIVEN FOR SACRAL AREA AND NECK PAIN 04/08. V/S TAKEN. EDUCATION PROVIDED REGARDING NON PHARMACOLOGICAL PAIN MANAGEMENT SUCH RELAXATION, VERBALIZED UNDERSTANDING, WILL CONTINUE TO MONITOR.
[2020-10-15 16:00] VITALS: BP 103/62
--- NOTE | 2020-10-15 19:30 | NUR ---
RECEIVED BEDSIDE REPORT FROM DAY SHIFT NURSE. PATIENT IS AWAKE, RESPIRATION EVEN UNLABORED ON ROOM AIR. NO DISTRESS NOTED. SKIN IS WARM AND DRY. MULTIPLE WOUND NOTED. IV PATENT AND INTACT. PLAN OF CARE WAS DISCUSSED. ALL SAFETY MEASURES IN PLACE. BED IS AT LOW POSITION. CALL LIGHT WITHIN REACH. WILL CONTINUE TO MONITOR
--- NOTE | 2020-10-15 19:30 | NUR ---
ENDORSED PATIENT TO ENGLISH PROFESSOR RN FOR CONTINUITY OF CARE. PATIENT IN STABLE CONDITION.
[2020-10-15 20:00] VITALS: BP 112/54
--- NOTE | 2020-10-15 20:30 | NUR ---
ALL SCHEDULED MEDS WERE GIVEN PER ORDER. WILL CONTINUE TO MONITOR
--- NOTE | 2020-10-15 23:06 | NUR ---
MADE ROUNDS. PATIENT SLEEPING RESPIRATION EVEN UNLABORED ON ROOM AIR. NO DISTRESS NOTED. WILL CONTINUE TO MONITOR
--- NOTE | 2020-10-16 | NUR ---
PATIENT REFUSED VITALS TO BE TAKEN. PER PATIENT HE DOESN'T WANT TO BE BOTHER. EXPLAINED THE PURPOSE OF VITAL SIGN STILL REFUSED X2. WILL CONTINUE TO MONITOR
--- NOTE | 2020-10-16 01:00 | NUR ---
PATIENT IS S/P I&D WOUND DRESSING IS DRY AND INTACT.
[2020-10-16] MEDS: NACL 0.9% 1,000 ML IV SCH ×3 (01:20→21:11)
--- NOTE | 2020-10-16 03:33 | NUR ---
MADE ROUNDS. PATIENT SLEEPING RESPIRATION EVEN UNLABORED ON ROOM AIR. NO DISTRESS NOTED. WILL CONTINUE TO MONITOR
[2020-10-16] MEDS: LACTATED RINGERS 1,000 ML IV SCH ×3 (03:45→20:25)
--- NOTE | 2020-10-16 04:00 | NUR ---
PATIENT REFUSED VITALS AND MORNING CARE. PER PATIENT HE DOESN'T WANT TO BE BOTHER. RISK AND BENEFITS EXPLAINED STILL REFUSED X2. WILL CONTINUE TO MONITOR
[2020-10-16] MEDS: PIPERACILLIN/TAZOBACTAM 2.25 GM in DEXTROSE 5% 50 ML IV SCH ×3 (04:21→20:11)
--- NOTE | 2020-10-16 07:13 | NUR ---
ENDORSED PATIENT TO DAY SHIFT NURSE FOR CONTINUITY OF CARE
--- NOTE | 2020-10-16 07:22 | NUR ---
received report from TERI Jensen emd teacher
[2020-10-16 07:44] LABS: BASOPHILS % (AUTO) 0.3 % (0.0-2.0); EOSINOPHILS % (AUTO) 0.3 % (0.0-4.0); HEMATOCRIT 28.8 % (36-52); HEMOGLOBIN 9.1 g/dL (12.0-18.0); LYMPHOCYTES # (AUTO) 1.8 K/uL (2.0-11.5); LYMPHOCYTES % (AUTO) 14.4 % (20.5-51.1); MEAN CORPUSCULAR HEMOGLOBIN 24 pg (27-31); MEAN CORPUSCULAR HGB CONC 32 g/dL (33-37); MEAN CORPUSCULAR VOLUME 76.6 fL (80-94); MONOCYTES # (AUTO) 0.7 K/uL (0.8-1.0); MONOCYTES % (AUTO) 5.8 % (1.7-9.3); NEUTROPHILS # (AUTO) 9.7 K/uL (1.8-7.7); NEUTROPHILS % (AUTO) 79.2 % (42.2-75.2); PLATELET COUNT (AUTO) 559 K/uL (140-450); RED BLOOD CELL COUNT(AUTO) 3.77 MIL/uL (4.20-6.10); RED CELL DISTRIBUTION WIDTH 16.2 % (11.6-13.7); WHITE BLOOD COUNT (AUTO) 12.3 K/uL (4.8-10.8)
[2020-10-16] MEDS: MORPHINE SULFATE 2 MG/ML SYR IVP PRN ×4 (07:46→20:08)
--- NOTE | 2020-10-16 07:57 | NUR ---
0755: Sent to [facility] on bed accompanied by transporter.
[2020-10-16 08:02] LABS: ANION GAP 12.4 (8-16); CARBON DIOXIDE 25.3 mmol/L (21-32); CREATININE 0.6 mg/dL (0.6-1.3); POTASSIUM 3.7 mmol/L (3.5-5.1)
[2020-10-16 08:06] LABS: MAGNESIUM 2.1 mg/dL (1.8-2.4); PHOSPHORUS 2.7 mg/dL (2.5-4.9)
[2020-10-16] MEDS: PANTOPRAZOLE 40 MG TABEC PO SCH (09:43)
[2020-10-16] MEDS: VANCOMYCIN 1,000 MG in DEXTROSE 5% 250 ML IV SCH ×2 (10:01→15:55)
[2020-10-16 12:00] VITALS: BP 97/47
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
[2020-10-16] MEDS ORDERED: SKINTEGRITY HYDROGEL TP PRN (14:30)
[2020-10-16 16:00] VITALS: BP 92/46
--- NOTE | 2020-10-16 19:35 | NUR ---
RECEIVED BEDSIDE REPORT FROM DAY SHIFT, NURSE PATIENT IS AWAKE AND UPSET WANTS TO GO HOME. EXPLAINED THAT HE NEEDS A WOUND VAC BEFORE DISCHARGE. VERBALIZE UNDERSTANDING AND CALM DOWN, RESPIRATION EVEN UNLABORED ON ROOM AIR. SKIN IS WARM AND DRY WITH MULTIPLE WOUNDS. IV PATENT AND INTACT. SUPRAPUBIC CATHETER NOTED DRAINING YELLOW URINE. PLAN OF CARE WAS DISCUSSED. ALL SAFETY MEASURES IN PLACE. BED IS AT LOW POSITION. CALL LIGHT WITHIN REACH. WILL CONTINUE TO MONITOR.
[2020-10-16 20:00] VITALS: BP 102/47
--- NOTE | 2020-10-16 20:10 | NUR ---
PATIENT COMPLAINED OF 8/10 SACRAL PAIN. PRN PAIN MEDS AND SCHEDULED MEDS GIVEN PER ORDER. WILL CONTINUE TO MONITOR.
--- NOTE | 2020-10-16 21:26 | NUR ---
MADE ROUNDS. PATIENT IS WATCHING TV RESPIRATION EVEN UNLABORED ON ROOM AIR. NO DISTRESS NOTED. WILL CONTINUE TO MONITOR
--- NOTE | 2020-10-16 23:49 | NUR ---
PATIENT REFUSED MIDNIGHT VITALS TO BE TAKEN AND REFUSED TO BE REPOSITIONED. EXPLAINED THE RISK AND BENEFITS X2 STILL REFUSED. SHIPYARD PAINTER AT BEDSIDE. WILL CONTINUE TO MONITOR
--- NOTE | 2020-10-17 00:11 | NUR ---
PATIENT DOESN'T WANT TO BE BOTHERED. HE WANTS HIS DOOR SHUT, PER PATIENT HE WANTS TO SLEEP WITHOUT AN INTERRUPTION FROM FREQUENT ROUNDING. EXPLAINED THE PURPOSE OF HOURLY ROUNDING X2 STILL REFUSED.
--- NOTE | 2020-10-17 01:00 | NUR ---
REFUSED WOUND CARE. EXPLAINED RISK AND BENEFITS.
[2020-10-17] MEDS: LACTATED RINGERS 1,000 ML IV SCH ×2 (04:45→13:22)
[2020-10-17] MEDS: PIPERACILLIN/TAZOBACTAM 2.25 GM in DEXTROSE 5% 50 ML IV SCH ×2 (04:49→13:21)
[2020-10-17] MEDS: MORPHINE SULFATE 2 MG/ML SYR IVP PRN ×4 (05:28→17:07)
--- NOTE | 2020-10-17 05:28 | NUR ---
PATIENT WOKE UP FROM PAIN. PRN PAIN MED ADMINISTER PER ORDER. WILL CONTINUE TO MONITOR
--- NOTE | 2020-10-17 05:37 | NUR ---
PATIENT REFUSES TO TURN AND REPOSITION. EXPLAINED RISKS AND BENEFITS STILL REFUSED
--- NOTE | 2020-10-17 07:13 | NUR ---
ENDORSED PATIENT TO DAY SHIFT NURSE FOR CONTINUITY OF CARE
[2020-10-17] MEDS: NACL 0.9% 1,000 ML IV SCH (07:20)
--- NOTE | 2020-10-17 07:25 | NUR ---
RECEIVED BEDSIDE REPORT FROM CHIEF DESIGN BRANCH RN. PATIENT IS AWAKE, FOLLOWS SIMPLE COMMAND. DENIES DISCOMFORT. RESPIRATION EVEN UNLABORED. ON ROOM AIR. SKIN IS WARM AND DRY WITH MULTIPLE WOUNDS, DRESSING INTACT. IV PATENT AND INTACT. SUPRAPUBIC CATHETER NOTED DRAINING CLEAR YELLOW URINE. PLAN OF CARE WAS DISCUSSED AND REVIEWED. ALL SAFETY MEASURES IN PLACE. BED IS AT LOW POSITION. CALL LIGHT WITHIN REACH. WILL CONTINUE TO MONITOR.
[2020-10-17 07:41] LABS: BASOPHILS # (AUTO) 0.1 K/uL (0.00-0.22); BASOPHILS % (AUTO) 0.8 % (0.0-2.0); EOSINOPHILS # (AUTO) 0.2 K/uL (0-0.4); EOSINOPHILS % (AUTO) 1.2 % (0.0-4.0); HEMATOCRIT 28.4 % (36-52); HEMOGLOBIN 9.1 g/dL (12.0-18.0); LYMPHOCYTES # (AUTO) 2.3 K/uL (2.0-11.5); LYMPHOCYTES % (AUTO) 18.8 % (20.5-51.1); MEAN CORPUSCULAR HEMOGLOBIN 25 pg (27-31); MEAN CORPUSCULAR HGB CONC 32 g/dL (33-37); MEAN CORPUSCULAR VOLUME 76.4 fL (80-94); MONOCYTES # (AUTO) 0.7 K/uL (0.8-1.0); NEUTROPHILS # (AUTO) 9.1 K/uL (1.8-7.7); NEUTROPHILS % (AUTO) 73.2 % (42.2-75.2); PLATELET COUNT (AUTO) 562 K/uL (140-450); RED BLOOD CELL COUNT(AUTO) 3.72 MIL/uL (4.20-6.10); RED CELL DISTRIBUTION WIDTH 16.1 % (11.6-13.7); WHITE BLOOD COUNT (AUTO) 12.4 K/uL (4.8-10.8)
[2020-10-17 07:55] LABS: ANION GAP 10.1 (8-16); CARBON DIOXIDE 28.8 mmol/L (21-32); CREATININE 0.6 mg/dL (0.6-1.3); POTASSIUM 3.9 mmol/L (3.5-5.1)
[2020-10-17 08:00] VITALS: BP 96/49
[2020-10-17] MEDS: PANTOPRAZOLE 40 MG TABEC PO SCH (09:04)
--- NOTE | 2020-10-17 09:45 | NUR ---
STARTED A NEW IV ACCESS TO RIGHT THUMB G 22. DISCONTINUED INFILTRATED TO RIGHT AC PERIPHERAL IV.
[2020-10-17] MEDS ORDERED: IV Vancomycin IV (11:34)
[2020-10-17] MEDS ORDERED: ZOS3.375PM IV (11:34)
[2020-10-17 12:00] VITALS: BP 93/44
[2020-10-17] MEDS ORDERED: SKINTEGRITY HYDROGEL TP SCH (13:00)
--- NOTE | 2020-10-17 13:00 | NUR ---
PT RESTING AND CALM. EYES CLOSED. NO S/S OF DISTRESS. WILL CONTINUE TO MONITOR.
--- NOTE | 2020-10-17 15:00 | NUR ---
RENDERED PM CARE. BM X1. WOUND DRESSING CHANGED. NO CHANGE OF CONDITION.
[2020-10-17 16:00] VITALS: BP 93/45
--- NOTE | 2020-10-17 19:00 | NUR ---
[facility]. NO S/S OF DISTRESS NOTED. VS WITHIN NORMAL LIMIT.
== END 2020-10-17 19:00 | DRG 710 ==
LOC: MED 15:36 → MMU 17:20
PROVIDERS: ADMIT Family Medicine; ATTEND Family Medicine
PROC: 0QBS0ZZ Excision of Coccyx, Open Approach (ICD-10-PCS; 2020-10-15)
PROC: 0QB10ZZ Excision of Sacrum, Open Approach (ICD-10-PCS; principal; 2020-10-15 09:00)
DX: A41.9 Sepsis, unspecified organism (principal); E43 Unspecified severe protein-calorie malnutrition; E87.1 Hypo-osmolality and hyponatremia; Z20.822 Contact with and (suspected) exposure to COVID-19; D64.9 Anemia, unspecified; E78.5 Hyperlipidemia, unspecified; G82.50 Quadriplegia, unspecified; F32.9 Major depressive disorder, single episode, unspecified; F41.9 Anxiety disorder, unspecified; G62.9 Polyneuropathy, unspecified; G89.29 Other chronic pain; K21.9 Gastro-esophageal reflux disease without esophagitis; E86.0 Dehydration; L89.323 Pressure ulcer of left buttock, stage 3; E83.42 Hypomagnesemia; L89.154 Pressure ulcer of sacral region, stage 4; Z68.23 Body mass index [BMI] 23.0-23.9, adult
CPT/HCPCS: 36415; 78300; 80048; 80053; 80202; 81001; 82150; 83036; 83605; 83690; 83735; 83880; 84100; 84436; 84439; 84443; 84479; 84484; 85025; 85610; 85730; 87040; 87070; 87081; 87086; 87186; 88304; 96365; 96375; 99285; A6248; A9503; J1100; J1580; J1885; J1956; J2001; J2270; J2405; J2543; J2704; J2710; J3010; J3370; J3490; J7030; J7060; J7120